=== PATIENT | female | born 1960 | race Caucasian/White ===

== ENCOUNTER 2016-10-26 08:03 | Day surgery (SDC) | payer MEDICARE, MEDICAID ==
[~2016-10-26 08:03] MED LIST: KETOROLAC TROMETHAMINE 0.45% 4 DROP/0.4 ML DROPERETTE OS PRN; MIDAZOLAM 2 MG/2 ML INJ ONE
[2016-10-26] MEDS ORDERED: CHONDR SU A NA/HYALUR INTRAOC KIT (SURGICARE) ONE (08:21)
[2016-10-26] MEDS ORDERED: LIDOCAINE 1% INJ-PF (10 MG/ML) 30 ML SDV ONE (08:21)
[2016-10-26] MEDS ORDERED: EPINEPHRINE INJ/PF 1 MG/1 ML AMPULE ONE (08:21)
[2016-10-26] MEDS: CYCLOPENTOLATE 0.2%/PHENYLEPHRINE 1% OPH SOLN 2 ML OS PRN ×3 (08:46→09:06)
[2016-10-26] MEDS: TROPICAMIDE 1% OPH SOLN 3 ML OS PRN ×3 (08:46→09:06)
[2016-10-26] MEDS: BESIFLOXACIN HCL 0.6% OPH SUSP 5 ML BOTTLE OS PRN ×3 (08:46→08:56)
[2016-10-26] MEDS: TETRACAINE HCL 0.5% OPH SOLN 2 ML OS PRN ×4 (08:47→09:24)
[2016-10-26] MEDS ORDERED: PHENYLEPHRINE/KETOROLAC 1%-0.3% 4 ML VIAL ONE (08:59)
[2016-10-26] MEDS ORDERED: DEXMEDETOMIDINE INJ 80 MCG/20 ML VIAL IV ONE (09:39)
[2016-10-26] MEDS ORDERED: POVIDONE-IODINE 5% OPH PREP SOLN 30 ML ONE (09:44)
[2016-10-26] MEDS ORDERED: MIDAZOLAM 2 MG/2 ML INJ ONE (10:01)
== END 2016-10-26 11:29 | disposition home or self-care (01) ==
LOC: SC 08:03
PROVIDERS: ATTEND Internal Medicine
DX: H25.13 Age-related nuclear cataract, bilateral (principal); Z53.9 Procedure and treatment not carried out, unspecified reason; F40.240 Claustrophobia
CPT/HCPCS: 82962; 66984; J2250; J3490 ×4; A9270; C9447; 142; J0171

== ENCOUNTER 2016-11-16 10:56 | Day surgery (SDC) | payer MEDICAID, MEDICARE ==
[~2016-11-16 10:56] MED LIST changes: +CHONDR SU A NA/HYALUR INTRAOC KIT (SURGICARE) ONE; +LIDOCAINE 1% INJ-PF (10 MG/ML) 30 ML SDV ONE; -MIDAZOLAM 2 MG/2 ML INJ ONE; +PHENYLEPHRINE/KETOROLAC 1%-0.3% 4 ML VIAL ONE
[2016-11-16] MEDS: TROPICAMIDE 1% OPH SOLN 3 ML OS PRN ×3 (11:18→11:49)
[2016-11-16] MEDS: CYCLOPENTOLATE 0.2%/PHENYLEPHRINE 1% OPH SOLN 2 ML OS PRN ×3 (11:19→11:50)
[2016-11-16] MEDS: BESIFLOXACIN HCL 0.6% OPH SUSP 5 ML BOTTLE OS PRN ×4 (11:19→12:37)
[2016-11-16] MEDS: TETRACAINE HCL 0.5% OPH SOLN 2 ML OS PRN ×2 (11:20→11:51)
[2016-11-16] MEDS ORDERED: FENTANYL CITRATE INJ/PF 100 MCG/2 ML AMPUL ONE (11:29)
[2016-11-16] MEDS ORDERED: MIDAZOLAM 2 MG/2 ML INJ ONE (11:29)
[2016-11-16] MEDS ORDERED: METOCLOPRAMIDE HCL INJ/PF 10 MG/2 ML SDV ONE (11:29)
[2016-11-16] MEDS ORDERED: LIDOCAINE 2% INJ-PF (20 MG/ML) 10 ML AMPUL ONE (11:30)
[2016-11-16] MEDS ORDERED: ONDANSETRON HCL INJ/PF 4 MG/2 ML SDV ONE (11:30)
[2016-11-16] MEDS ORDERED: GLYCOPYRROLATE INJ 0.4 MG/2 ML VIAL ONE (11:31)
[2016-11-16] MEDS ORDERED: PROPOFOL INJ 200 MG/20 ML VIAL IV ONE ×2 (11:31→13:20)
[2016-11-16] MEDS ORDERED: SUCCINYLCHOLINE CHLORIDE INJ 200 MG/10 ML VIAL ONE ×2 (11:31→13:20)
[2016-11-16] MEDS ORDERED: ROCURONIUM BROMIDE INJ 50 MG/5 ML VIAL IV ONE (11:32)
--- NOTE | 2016-11-16 12:59 | [facility] OPERATIVE REPORT E ---
[facility] Operative Report NAME: CLINTON ERICKSON AGE: 56Y DATE OF SURGERY: 11/16/2016 ROOM: PREOPERATIVE DIAGNOSIS: Cataract, left eye. POSTOPERATIVE DIAGNOSIS: Cataract, left eye. OPERATION: Cataract extraction with intraocular lens implant of the left eye. SURGEON: MALGORZATA HERCULES M.D. ANESTHESIA: General. PROCEDURE: After obtaining appropriate consent, the patient's left eye was prepped and draped in sterile fashion as well as the surgeon in a sterile manner and cataract surgery was started. First a paracentesis blade was used to make a small side-port incision. Viscoelastic was used to inflate the anterior chamber. Next a 2.4 mm incision was made with the paracentesis blade. A continuous capsulorrhexis incision was made using a cystotome and Utrata forceps. Following this hydrodissection was carried out to make the lens fully loose and mobile and it was rotated 90 degrees. Following this, a lghixl-diy-eljwyeh technique was used to phacoemulsify the lens with a CDE of 5.51. The remaining cortex was removed with irrigation/aspiration. Provisc was instilled into the capsular bag to inflate the bag. A SN60WF, 21.0 diopter lens was placed. The remaining viscoelastic material was removed with irrigation/aspiration. Following this, a 10-0 nylon suture was used to close the incision and it was found to be watertight. Vigamox was instilled in the eye and a protective shield was placed over the eye. The patient returned to the postoperative recovery in stable condition. Prior to surgery, it was decided to do general anesthesia for this patient due to first attempt a few weeks prior where the patient had significant anxiety and claustrophobia and panic attacks and we were unable to proceed with the case under topical with Versed, therefore, we decided it would be safer to reschedule and do it under anesthesia which we performed today. DICTATING PHYSICIAN: MALGORZATA HERCULES M.D. [id number] PHY#: [id number] ID: [id number] JOB#: [id number] ACCT: [id number] cc:MALGORZATA HERCULES M.D. >
--- NOTE | 2016-11-16 12:59 | [facility] DISCHARGE SUMMARY E ---
[facility] Discharge Summary NAME: CLINTON ERICKSON AGE: 56Y ADMITTED: 11/16/2016 DISCHARGED: 11/16/2016 HOSPITAL COURSE: This is a 56-year-old female who underwent cataract extraction of the left eye. DIAGNOSIS: Cataract, left eye. INDICATIONS: She underwent surgery because she was having difficulty seeing captions on the TV. DISCHARGE INSTRUCTIONS: She should be on a regular diet. No bending at her waist. No heavy lifting. She should use her Besivance, Ilevro, and Durezol at 3 p.m. and 8 p.m. and sleep with a rigid shield. I will see her for her 1 day postoperative tomorrow. DICTATING PHYSICIAN: MALGORZATA HERCULES M.D. [id number] PHY#: [id number] ID: [id number] JOB#: [id number] ACCT: [id number] cc:MALGORZATA HERCULES M.D. >
[2016-11-16] MEDS ORDERED: NALOXONE HCL INJ/PF 0.4 MG/1 ML SDV ONE (13:12)
[2016-11-16] MEDS ORDERED: TOBRAMYCIN SULFATE/DEXAMETH OPH OINTMENT 3.5 GM ONE ×2 (13:24→13:39)
[2016-11-16] MEDS ORDERED: DEXMEDETOMIDINE INJ 80 MCG/20 ML VIAL IV ONE (13:37)
--- NOTE | 2016-11-16 15:08 | [facility] OPERATIVE REPORT E ---
[facility] Operative Report NAME: CLINTON ERICKSON AGE: 56Y DATE OF SURGERY: 11/16/2016 ROOM: ADDENDUM: The tube was removed from intubation in the operating room, and the patient was in stable position. However, in the PACU the patient started to develop acute respiratory distress, and therefore it was decided to stabilize the airway and reintubate the patient. The patient was reintubated and back in stable condition in the PACU. It was decided at this time that the patient should be sent to the ER and admitted for monitoring and chest x-ray. See the anesthesia report for any further details on this. TobraDex ointment was placed in the eye, and a pressure patch was placed with a rigid shield to protect the eye. Directions were made so that the pressure patch should stay on 24 hours until I see her in the hospital tomorrow for examination and postop care. DICTATING PHYSICIAN: MALGORZATA HERCULES M.D. [id number] PHY#: [id number] ID: [id number] JOB#: [id number] ACCT: [id number] cc:MALGORZATA HERCULES M.D. >
== END 2016-11-16 13:52 | disposition other institution (70) ==
LOC: SC 10:56
PROVIDERS: ATTEND Internal Medicine
PROC: 08RK3JZ Replacement of Left Lens with Synthetic Substitute, Percutaneous Approach (ICD-10-PCS; principal; 2016-11-16 12:00)
DX: H25.12 Age-related nuclear cataract, left eye (principal); R06.00 Dyspnea, unspecified; M19.90 Unspecified osteoarthritis, unspecified site; Z79.1 Long term (current) use of non-steroidal anti-inflammatories (NSAID); E11.9 Type 2 diabetes mellitus without complications; I10 Essential (primary) hypertension; G40.909 Epilepsy, unspecified, not intractable, without status epilepticus; E66.9 Obesity, unspecified; Z88.5 Allergy status to narcotic agent; Z87.891 Personal history of nicotine dependence; Z79.84 Long term (current) use of oral hypoglycemic drugs
CPT/HCPCS: 66984; 82962; V2632; J2250; J3490 ×6; A9270; J3010; J2765; J2310; J0330; J2405; J2704; C9447; 142

== ENCOUNTER 2016-11-16 14:00 | Observation (INO) | payer MEDICARE ==
[2016-11-16] MEDS ORDERED: FENTANYL CITRATE INJ/PF 100 MCG/2 ML AMPUL ONE (14:13)
[2016-11-16] MEDS ORDERED: PROPOFOL INJ 200 MG/20 ML VIAL IV ONE (14:14)
[2016-11-16] MEDS ORDERED: FENTANYL CITRATE INJ/PF 100 MCG/2 ML AMPUL IV ONE (14:16)
[2016-11-16] MEDS ORDERED: PROPOFOL 100 ML IV ONE ×2 (14:27→15:51)
[2016-11-16 15:15] LABS: ABSOLUTE BASOPHILS # (AUTO) 0.1 10^3/uL (0.0-0.2); ABSOLUTE EOSINOPHILS # (AUTO) 0.2 10^3/uL (0.0-0.6); ABSOLUTE LYMPHOCYTES (AUTO) 1.9 10^3/uL (0.5-4.7); ABSOLUTE MONOCYTES (AUTO) 0.4 10^3/uL (0.1-1.4); ABSOLUTE NEUT (AUTO) 6.5 10^3/uL (1.7-8.2); BASOPHILS % (AUTO) 0.6 % (0-2); EOSINOPHILS % (AUTO) 2.5 % (0-6); HEMATOCRIT 38.7 % (36.0-47.0); HEMOGLOBIN 12.6 g/dL (12.0-15.5); HGB HCT DIFFERENCE -0.9; LYMPHOCYTES % (AUTO) 20.6 % (13-45); MEAN CORPUSCULAR HEMOGLOBIN 30.1 pg (27.0-33.4); MEAN CORPUSCULAR HGB CONC 32.6 g/dL (32.0-36.0); MEAN CORPUSCULAR VOLUME 92 fl (80-97); MONOCYTES % (AUTO) 4.2 % (3-13); RED BLOOD COUNT 4.19 10^6/uL (3.72-5.28); RED CELL DISTRIBUTION WIDTH 14.7 % (11.5-14.0); SEGMENTED NEUTROPHILS % (AUTO) 72.1 % (42-78)
[2016-11-16 15:30] LABS: ANION GAP 10 (5-19); BLOOD UREA NITROGEN 10 mg/dL (7-20); CALCIUM 8.9 mg/dL (8.4-10.2); CARBON DIOXIDE 26 mmol/L (22-30); CHLORIDE 105 mmol/L (98-107); CREATINE KINASE 87 U/L (30-135); CREATININE RESULT 0.58 mg/dL (0.52-1.25); GLUCOSE 143 mg/dL (75-110); POTASSIUM 4.8 mmol/L (3.6-5.0); SODIUM 140.9 mmol/L (137-145)
[2016-11-16] MEDS ORDERED: DEXAMETHASONE SOD PHOS INJ 10 MG/1 ML VIAL IV ONE (17:53)
--- NOTE | 2016-11-16 17:54 | ER Document Report ---
ED Respiratory Problem - General Chief Complaint: Respiratory Distress Stated Complaint: UNRESPONSIVE Notes: The patient is a 56-year-old female who presents from the outpatient ophthalmology surgical center after she became hypoxic and in respiratory distress. She had cataract surgery under general anesthesia earlier today because of anxiety. She was extubated and doing fine, but then her oxygenation went down to 40% and she became acutely worse. She was re-intubated and sent to the emergency room for further evaluation and treatment. TRAVEL OUTSIDE OF THE [place] IN LAST 30 DAYS: No - Related Data Allergies/Adverse Reactions: morphine [Morphine] Allergy (Intermediate, Verified 10/26/16 09:03) Nausea Past Medical History - General Information source: Emergency Med Personnel - Social History Smoking Status: Never Smoker Family History: Reviewed & Not Pertinent - Past Medical History Cardiac Medical History: Reports: Hx Coronary Artery Disease, Hx Hypercholesterolemia, Hx Hypertension Denies: Hx DVT, Hx Heart Attack Pulmonary Medical History: Reports: Hx Asthma Denies: Hx Tuberculosis Neurological Medical History: Reports: Hx Seizures - LAST Aug. Denies: Hx Cerebrovascular Accident Endocrine Medical History: Reports: Hx Diabetes Mellitus Type 2. Denies: Hx Diabetes Mellitus Type 1 Renal/ Medical History: Denies: Hx Peritoneal Dialysis GI Medical History: Reports: Hx Gastroesophageal Reflux Disease. Denies: Hx Gastritis, Hx Hepatitis, Hx Hiatal Hernia, Hx Irritable Bowel, Hx Liver Failure , Hx Ulcer Musculoskeltal Medical History: Reports Hx Arthritis, Denies Hx Multiple Sclerosis Psychiatric Medical History: Reports: Hx Depression - Anxiety Denies: Hx Bipolar Disorder, Hx Dementia, Hx Post Traumatic Stress Disorder, Hx Schizophrenia Infectious Medical History: Denies: Hx Hepatitis Past Surgical History: Reports: Hx Cholecystectomy. Denies: Hx Appendectomy, Hx Bowel Surgery, Hx Section, Hx Colostomy, Hx Coronary Artery Bypass Graft, Hx Gastric Bypass Surgery, Hx Herniorrhaphy, Hx Hysterectomy, Hx Mastectomy, Hx Open Heart Surgery, Hx Pacemaker, Hx Tonsillectomy, Hx Tubal Ligation - Immunizations Hx Diphtheria, Pertussis, Tetanus Vaccination: No Hx Pneumococcal Vaccination: 10/01/06 Review of Systems - Review of Systems -: Yes ROS unobtainable due to patient's medical condition Physical Exam - Vital signs Vitals: Pulse Ox 99 11/16/16 14:10 - Notes Notes: PHYSICAL EXAMINATION: GENERAL: Intubated. No acute distress. HEAD: Atraumatic, normocephalic. EYES: Pupils equal round and reactive to light, extraocular movements intact, sclera anicteric, conjunctiva are normal. ENT: nares patent, oropharynx clear without exudates. Moist mucous membranes. NECK: Normal range of motion, supple without lymphadenopathy LUNGS: Breath sounds clear to auscultation bilaterally and equal. No wheezes rales or rhonchi. HEART: Regular rate and rhythm without murmurs ABDOMEN: Soft, nontender, normoactive bowel sounds. No guarding, no rebound. No masses appreciated. EXTREMITIES: Normal range of motion, no pitting or edema. No cyanosis. NEUROLOGICAL: RASS -4 SKIN: Warm, Dry, normal turgor, no rashes or lesions noted. Course - Re-evaluation Re-evalutation: With an acute hypoxic episode after surgery, CTA obtained to assess for PE. No PE present. Called anesthesia to help extubate patient. Extubated patient and placed on a Ventimask. Due to respiratory distress several hours after she was extubated, will admit patient for further monitoring. Spoke to Dr. Moody and she has accepted patient under her service. - Vital Signs Vital signs: Temp Pulse Resp BP Pulse Ox 96 22 H 173/99 H 95 11/16/16 18:28 11/16/16 18:28 11/16/16 18:28 11/16/16 18:28 - Laboratory Result Diagrams: 11/16/16 14:16 11/16/16 14:16 Laboratory results interpreted by me: 11/16/16 11/16/16 14:16 14:16 RDW 14.7 H Glucose 143 H Critical Care Note - Critical Care Note Total time excluding time spent on procedures (mins): 45 Discharge - Discharge Clinical Impression: Hypoxia, Respiratory abnormality Condition: Stable Disposition: ADMITTED OBSERVATION Admitting Provider: Jenniferist Marcella Moody Unit Admitted: [facility]
--- NOTE | 2016-11-16 19:09 | PDOC H&P ---
History of Present Illness Admission Date/PCP: 11/16/16 18:49 ELICEO HERZOG MD Patient complains of: SOB History of Present Illness: CLINTON ERICKSON is a 56 year old female Underwent cataract surgery today at the surgery Center Patient was initially extubated and had to be reintubated as she was in respiratory distress She was finally extubated again and was admitted overnight for observation Upon admission patient denies chest pain shortness of breath fever chills abdominal pain Past Medical History Cardiac Medical History: Reports: Coronary Artery Disease, Hyperlipidema, Hypertension Denies: DVT, Myocardial Infarction Pulmonary Medical History: Reports: Asthma Denies: Tuberculosis Neurological Medical History: Reports: Seizures - LAST Aug Endocrine Medical History: Reports: Diabetes Mellitus Type 2 Denies: Diabetes Mellitus Type 1 GI Medical History: Reports: Gastroesophageal Reflux Disease Denies: Hepatitis, Hiatal Hernia Musculoskeltal Medical History: Reports: Arthritis Psychiatric Medical History: Reports: Depression - Anxiety Denies: Bipolar Disorder, Dementia, Post Traumatic Stress Disorder Hematology: Denies: Anemia, Sickle Cell Disease Past Surgical History Past Surgical History: Reports: Cholecystectomy Denies: Amputation, Appendectomy, Section, Colostomy, Coronary Artery Bypass Graft, Gastric Bypass Surgery, Herniorrhaphy, Hysterectomy, Mastectomy, Pacemaker, Tonsillectomy, Tubal Ligation Social History Smoking Status: Never Smoker Frequency of Alcohol Use: None Hx Recreational Drug Use: No Hx Prescription Drug Abuse: No - Advance Directive Resuscitation Status: Full Code Family History Family History: Reviewed & Not Pertinent Parental Family History Reviewed: Yes Children Family History Reviewed: Yes Sibling(s) Family History Reviewed.: Yes Medication/Allergy Home Medications: Atenolol [Tenormin 50 mg Tablet] 50 mg PO DAILY 02/23/15 Estradiol/Norethindrone Acet [Mimvey Lo 0.5-0.1 mg Tablet] 1 tab PO DAILY Levetiracetam [Keppra 500 mg Tablet] 500 mg PO QAM 02/23/15 Oxycodone HCl/Acetaminophen [Percocet 5-325 mg Tablet] 1 tab PO Q4 02/23/15 Buspirone HCl 15 mg PO BID 10/20/16 Clonidine HCl 0.1 mg PO QHS 10/20/16 Gabapentin 300 mg PO QHS 10/20/16 Ketorolac Tromethamine 0.45% [Acuvail 0.45% Oph Soln 0.4 ml/Dropperette] 1 drop OD ASDIR 10/20/16 Levetiracetam [Keppra 500 mg Tablet] 1,000 mg PO QHS 10/20/16 Metformin HCl 500 mg PO QAM 10/20/16 Metformin HCl [Glucophage] 1,000 mg PO QHS 10/20/16 Moxifloxacin HCl [Vigamox 0.5% Oph Soln 3 ml] 1 drop OP ASDIR 10/20/16 Naproxen [Naprosyn 250 mg Tablet] 250 mg PO DAILY PRN 10/20/16 Paroxetine HCl [Paxil] 40 mg PO ASDIR 10/20/16 Pnv with Ca,No.72/Iron/FA [Preplus Ca-Fe 27 mg-FA 1 mg Tb] 1 each PO DAILY 10/20 Prednisolone Acetate [Pred Forte] 1 ml OP ASDIR 10/20/16 Promethazine HCl 25 mg PO ASDIR 10/20/16 Simvastatin 20 mg PO DAILY 10/20/16 Solifenacin Succinate [Vesicare] 10 mg PO ASDIR 10/20/16 Zolpidem Tartrate 15 mg PO ASDIR PRN 10/20/16 Besifloxacin HCl [Besivance 0.6% Oph Susp 5 ml] 1 drop OP ASDIR 10/26/16 Difluprednate [Durezol] 1 drop OP ASDIR 10/26/16 Nepafenac [Ilevro] 1 drop OP ASDIR 10/26/16 Allergies/Adverse Reactions: morphine [Morphine] Allergy (Intermediate, Verified 10/26/16 09:03) Nausea Review of Systems Constitutional: ABSENT: chills, fever(s), headache(s), weight gain, weight loss Eyes: ABSENT: visual disturbances Ears: ABSENT: hearing changes Cardiovascular: ABSENT: chest pain, dyspnea on exertion, edema, orthropnea, palpitations Respiratory: ABSENT: cough, hemoptysis Gastrointestinal: ABSENT: abdominal pain, constipation, diarrhea, hematemesis, hematochezia, nausea, vomiting Genitourinary: ABSENT: dysuria, hematuria Musculoskeletal: ABSENT: joint swelling Integumentary: ABSENT: rash, wounds Neurological: ABSENT: abnormal gait, abnormal speech, confusion, dizziness, focal weakness, syncope Psychiatric: ABSENT: anxiety, depression, homidical ideation, suicidal ideation Endocrine: ABSENT: cold intolerance, heat intolerance, polydipsia, polyuria Hematologic/Lymphatic: ABSENT: easy bleeding, easy bruising Physical Exam Vital Signs: Temp Pulse Resp BP Pulse Ox 96 22 H 173/99 H 95 11/16/16 18:28 11/16/16 18:28 11/16/16 18:28 11/16/16 18:28 General appearance: PRESENT: no acute distress, cooperative, obese Head exam: PRESENT: atraumatic, normocephalic Eye exam: PRESENT: other - left eye is patched Respiratory exam: PRESENT: clear to auscultation sam. ABSENT: rales, rhonchi, wheezes Cardiovascular exam: PRESENT: RRR. ABSENT: diastolic murmur, rubs, systolic murmur Pulses: PRESENT: normal dorsalis pedis pul GI/Abdominal exam: PRESENT: normal bowel sounds, soft. ABSENT: distended, guarding, mass, organolmegaly, rebound, tenderness Extremities exam: PRESENT: full ROM. ABSENT: calf tenderness, clubbing, pedal edema Neurological exam: PRESENT: alert, awake, oriented to person, oriented to place , oriented to time, oriented to situation, CN II-XII grossly intact. ABSENT: motor sensory deficit Results Impressions: Chest X-Ray 11/16/16 14:11 IMPRESSION: Endotracheal tube with its tip at the level of the thoracic inlet. Allowing for the shallow inspiration no acute consolidations or pleural effusions are identified. Other findings as noted above Chest/Abdomen CTA 11/16/16 14:11 IMPRESSION: No evidence for pulmonary embolic disease. Airspace consolidation is identified in the dependent portions of both lungs most consistent with atelectatic changes. Other findings as noted above Assessment & Plan - Diagnosis (1) Respiratory failure Is this a current diagnosis for this admission?: Yes (2) Obesity (BMI 30.0-34.9) Is this a current diagnosis for this admission?: Yes (3) ROBERTA (obstructive sleep apnea) Is this a current diagnosis for this admission?: Yes - Time Time Spent with patient: will keep patient overnite nebs incentive spirometry will discharge patient in am if stable Time Spent: 50 to 70 Minutes - Inpatient Certification Based on my medical assessment, after consideration of the patient's comorbidities, presenting symptoms, or acuity I expect that the services needed warrant INPATIENT care.: No I certify that my determination is in accordance with my understanding of Medicare's requirements for reasonable and necessary INPATIENT services [42 CFR 412.3e].: No
[2016-11-16] MEDS: IPRATROPIUM/ALBUTEROL 0.5-2.5 MG/3 ML AMPUL NEB SCH (21:06)
[2016-11-17] MEDS: IPRATROPIUM/ALBUTEROL 0.5-2.5 MG/3 ML AMPUL NEB SCH (08:37)
[2016-11-17 09:53] VITALS: BP 140/69
--- NOTE | 2016-11-17 12:36 | EKG REPORT ---
SEVERITY:- BORDERLINE ECG - SINUS RHYTHM BORDERLINE T ABNORMALITIES, ANTERIOR LEADS BORDERLINE PROLONGED QT INTERVAL : Confirmed by: Leopoldo Schaeffer 17-Nov-2016 12:35:08
--- NOTE | 2016-11-17 13:09 | PDOC DISCHARGE SUMMARY ---
General - Admit/Disc Date/PCP Admission Date/Primary Care Provider: 11/16/16 18:54 ELICEO HERZOG MD Discharge Date: 11/17/16 - Discharge Diagnosis (1) Respiratory failure Is this a current diagnosis for this admission?: Yes (2) Obesity (BMI 30.0-34.9) Is this a current diagnosis for this admission?: Yes (3) ROBERTA (obstructive sleep apnea) Is this a current diagnosis for this admission?: Yes - Additional Information Resuscitation Status: Full Code Discharge Diet: As Tolerated Discharge Activity: Activity As Tolerated Home Medications: Atenolol [Tenormin 50 mg Tablet] 50 mg PO DAILY 02/23/15 Estradiol/Norethindrone Acet [Mimvey Lo 0.5-0.1 mg Tablet] 1 tab PO DAILY Levetiracetam [Keppra 500 mg Tablet] 500 mg PO QAM 02/23/15 Buspirone HCl 15 mg PO BID 10/20/16 Gabapentin 300 mg PO QHS 10/20/16 Ketorolac Tromethamine 0.45% [Acuvail 0.45% Oph Soln 0.4 ml/Dropperette] 1 drop OD ASDIR 10/20/16 Levetiracetam [Keppra 500 mg Tablet] 1,000 mg PO QHS 10/20/16 Metformin HCl 500 mg PO QAM 10/20/16 Metformin HCl [Glucophage] 1,000 mg PO QHS 10/20/16 Moxifloxacin HCl [Vigamox 0.5% Oph Soln 3 ml] 1 drop OP ASDIR 10/20/16 Paroxetine HCl [Paxil] 20 mg PO QHS 10/20/16 Pnv with Ca,No.72/Iron/FA [Preplus Ca-Fe 27 mg-FA 1 mg Tb] 1 each PO DAILY 10/20 Prednisolone Acetate [Pred Forte] 1 ml OP ASDIR 10/20/16 Promethazine HCl 25 mg PO ASDIR 10/20/16 Simvastatin 20 mg PO DAILY 10/20/16 Zolpidem Tartrate 15 mg PO ASDIR PRN 10/20/16 Besifloxacin HCl [Besivance 0.6% Oph Susp 5 ml] 1 drop OP ASDIR 10/26/16 Difluprednate [Durezol] 1 drop OP ASDIR 10/26/16 Nepafenac [Ilevro] 1 drop OP ASDIR 10/26/16 Clonazepam [Klonopin] 0.5 mg PO BID 11/17/16 Hydrocodone/Acetaminophen [Hydrocodon-Acetaminoph 7.5-325] 1 tab PO Q8HP PRN Naproxen 500 mg PO BIDP PRN 11/17/16 History of Present Illness Patient complains of: shortness ob breath History of Present Illness: CLINTON ERICKSON is a 56 year old female Underwent cataract surgery today at the surgery Center Patient was initially extubated and had to be reintubated as she was in respiratory distress She was finally extubated again and was admitted overnight for observation Upon admission patient denies chest pain shortness of breath fever chills abdominal pain Hospital Course Hospital Course: Patient was admitted overnite to Telemetry Unit She was kept on nasal O2 , and had received decadron 10 mg IVP in the ER She was monitered She used the Incentive Spirometer and had intermittent nebs She remained asymptomatic and was discharged the next morning totally asymptomatic except for a persistent sore throat Physical Exam Vital Signs: Temp Pulse Resp BP Pulse Ox 98.1 F 108 H 18 140/69 H 98 11/17/16 09:46 11/17/16 09:46 11/17/16 09:46 11/17/16 09:46 11/17/16 09:46 Intake & Output 11/16/16 11/17/16 11/18/16 00:59 00:59 00:59 Intake Total 250 Balance 250 Weight 111.3 kg General appearance: PRESENT: no acute distress, well-developed, well-nourished Head exam: PRESENT: atraumatic, normocephalic Eye exam: PRESENT: conjunctiva pink, EOMI, PERRLA. ABSENT: scleral icterus Ear exam: PRESENT: normal external ear exam Mouth exam: PRESENT: moist, tongue midline Neck exam: ABSENT: carotid bruit, JVD, lymphadenopathy, thyromegaly Respiratory exam: PRESENT: clear to auscultation sam. ABSENT: rales, rhonchi, wheezes Cardiovascular exam: PRESENT: RRR. ABSENT: diastolic murmur, rubs, systolic murmur Pulses: PRESENT: normal dorsalis pedis pul Vascular exam: PRESENT: normal capillary refill GI/Abdominal exam: PRESENT: normal bowel sounds, soft. ABSENT: distended, guarding, mass, organolmegaly, rebound, tenderness Rectal exam: PRESENT: deferred Extremities exam: PRESENT: full ROM. ABSENT: calf tenderness, clubbing, pedal edema Neurological exam: PRESENT: alert, awake, oriented to person, oriented to place , oriented to time, oriented to situation, CN II-XII grossly intact. ABSENT: motor sensory deficit Psychiatric exam: PRESENT: appropriate affect, normal mood. ABSENT: homicidal ideation, suicidal ideation Skin exam: PRESENT: dry, intact, warm. ABSENT: cyanosis, rash Results Laboratory Results: Abnormal - 24 hr 11/16/16 11/16/16 14:16 14:16 RDW 14.7 H Glucose 143 H 11/16/16 11/16/16 14:16 14:16 RDW 14.7 H Glucose 143 H Labs- All tests 24 hr 11/16/16 11/16/16 11/16/16 14:16 14:16 14:16 WBC 9.0 RBC 4.19 Hgb 12.6 Hct 38.7 MCV 92 MCH 30.1 MCHC 32.6 RDW 14.7 H Plt Count 241 Seg Neutrophils % 72.1 Lymphocytes % 20.6 Monocytes % 4.2 Eosinophils % 2.5 Basophils % 0.6 Absolute Neutrophils 6.5 Absolute Lymphocytes 1.9 Absolute Monocytes 0.4 Absolute Eosinophils 0.2 Absolute Basophils 0.1 Sodium 140.9 Potassium 4.8 Chloride 105 Carbon Dioxide 26 Anion Gap 10 BUN 10 Creatinine 0.58 Est GFR ( Amer) > 60 Est GFR (Non-Af Amer) > 60 Glucose 143 H Calcium 8.9 Creatine Kinase 87 Troponin I NT-Pro-B Natriuret Pep 117 11/16/16 14:16 WBC RBC Hgb Hct MCV MCH MCHC RDW Plt Count Seg Neutrophils % Lymphocytes % Monocytes % Eosinophils % Basophils % Absolute Neutrophils Absolute Lymphocytes Absolute Monocytes Absolute Eosinophils Absolute Basophils Sodium Potassium Chloride Carbon Dioxide Anion Gap BUN Creatinine Est GFR ( Amer) Est GFR (Non-Af Amer) Glucose Calcium Creatine Kinase Troponin I < 0.012 NT-Pro-B Natriuret Pep Impressions: Chest X-Ray 11/16/16 14:11 IMPRESSION: Endotracheal tube with its tip at the level of the thoracic inlet. Allowing for the shallow inspiration no acute consolidations or pleural effusions are identified. Other findings as noted above Chest/Abdomen CTA 11/16/16 14:11 IMPRESSION: No evidence for pulmonary embolic disease. Airspace consolidation is identified in the dependent portions of both lungs most consistent with atelectatic changes. Other findings as noted above Plan Discharge Plan: patient was discharged home to follow up with Dr Yip the same day Time Spent: Less than 30 Minutes
== END 2016-11-17 10:07 | disposition home or self-care (01) ==
LOC: ER 14:00 → EH 18:49 → UNDOADMOB 18:49 → EH 18:54 → 3S 21:51
PROVIDERS: ADMIT Emergency Medicine; ATTEND Emergency Medicine
PROC: 3E033GC Introduction of Other Therapeutic Substance into Peripheral Vein, Percutaneous Approach (ICD-10-PCS; principal; 2016-11-16)
PROC: 3E033GC Introduction of Other Therapeutic Substance into Peripheral Vein, Percutaneous Approach (ICD-10-PCS; 2016-11-16)
DX: J95.821 Acute postprocedural respiratory failure (principal); G47.33 Obstructive sleep apnea (adult) (pediatric); E66.9 Obesity, unspecified; I25.10 Atherosclerotic heart disease of native coronary artery without angina pectoris; I10 Essential (primary) hypertension; E78.5 Hyperlipidemia, unspecified; J45.909 Unspecified asthma, uncomplicated; E11.9 Type 2 diabetes mellitus without complications; K21.9 Gastro-esophageal reflux disease without esophagitis; Z79.84 Long term (current) use of oral hypoglycemic drugs; Z68.42 Body mass index [BMI] 45.0-49.9, adult; Z98.49 Cataract extraction status, unspecified eye
CPT/HCPCS: 94640 ×3; 99291; 96374; 96375; 36415; 82550; 85025; 80048; 84484; 83880; 71010; 71275; 93005; 93010; 94002; G0378 ×2; J3010; J2704; J1100; A9270 ×2; J7620

== ENCOUNTER 2018-06-17 09:46 | Emergency (ER) | payer MEDICARE, MEDICAID ==
[2018-06-17 10:08] VITALS: BP 151/87
[2018-06-17] MEDS ORDERED: LIDOCAINE 1% INJ-PF (10 MG/ML) 30 ML SDV INJ ONE (10:35)
[2018-06-17] MEDS ORDERED: CEFTRIAXONE INJ 1000 MG VIAL IM ONE (10:35)
[2018-06-17] MEDS ORDERED: OXYCODONE-ACETAMINOPHEN 5-325 MG TABLET PO ONE (10:35)
--- NOTE | 2018-06-17 10:41 | ER Document Report ---
ED General - General Chief Complaint: Breast Problem Stated Complaint: POST OP ISSUES Time Seen by Provider: 06/17/18 10:27 Notes: Chief complaint: Postsurgical pain History of complain:( obtained from----patient) 58 years old female 2 weeks ago had bilateral mastectomy, presents today with erythema around the brandon and the drain on the right side as well as on the left side. No fever chills or other constitutional symptoms. Running out of her pain medication and having more pain. Denies any nausea vomiting fever chills or other constitutional symptoms Onset: Last 2 weeks gradual Duration: 2 weeks Severity: Moderate Quality: Sharp Context: Postsurgical pain Exacerbating factor and relieving factors: Movement REVIEW OF SYSTEMS: CONSTITUTIONAL : Denies fever, chills, EENT: Denies eye, ear, throat, or mouth pain or symptoms. Denies nasal or sinus congestion or discharge. Denies throat, tongue, or mouth swelling or difficulty swallowing. CARDIOVASCULAR: Denies chest pain. Denies palpitations or racing or irregular heart beat. Denies ankle edema. RESPIRATORY: Denies cough, cold, or chest congestion. Denies shortness of breath, difficulty breathing, or wheezing. GASTROINTESTINAL: Denies distention. Denies nausea, vomiting, or diarrhea. Denies blood in vomitus, stools, or per rectum. Denies black, tarry stools. Denies constipation. GENITOURINARY: Denies difficulty urinating, painful urination, burning, frequency, blood in urine, or discharge. FEMALE GENITOURINARY: Denies vaginal bleeding, heavy or abnormal periods, irregular periods. Denies vaginal discharge or odor. MUSCULOSKELETAL: Denies back or neck pain or stiffness. Denies joint pain or swelling. SKIN: Denies rash, lesions or sores. HEMATOLOGIC : Denies easy bruising or bleeding. LYMPHATIC: Denies swollen, enlarged glands. NEUROLOGICAL: Denies confusion or altered mental status. Denies passing out or loss of consciousness. Denies dizziness or lightheadedness. Denies headache. Denies weakness or paralysis or loss of use of either side. Denies problems with gait or speech. Denies sensory loss, numbness, or tingling. Denies seizures. PSYCHIATRIC: Denies anxiety or stress. Denies depression, suicidal ideation, or homicidal ideation. ALL OTHER SYSTEMS REVIEWED AND NEGATIVE. PHYSICAL EXAMINATION: GENERAL: Well-appearing, well-nourished and obesity, mild to moderate discomfort HEAD: Atraumatic, normocephalic. EYES: Pupils equal round and reactive to light, extraocular movements intact, conjunctiva are normal. ENT: Nares patent, oropharynx clear without exudates. Moist mucous membranes. NECK: Normal range of motion, supple without lymphadenopathy LUNGS: Breath sounds clear to auscultation bilaterally and equal. No wheezes rales or rhonchi. HEART: Regular rate and rhythm without murmurs ABDOMEN: Soft, nontender, nondistended abdomen. No guarding, no rebound. No masses appreciated. Examination of genitals-deferred Musculoskeletal: Normal range of motion, no pitting or edema. No cyanosis. NEUROLOGICAL: Cranial nerves grossly intact. Normal speech, normal gait. Normal sensory, motor exams PSYCH: Normal mood, normal affect. SKIN: Examination of the skin over the bilateral breast region shows complete removal of the breast, brandon intact but on the left side there were mild erythema around the brandon noted. On the right side brandon appears normal but the drain is draining but erythema around the drainage tube was noted. No purulent discharges. Dictation was performed using [employer]ac[employer] voice recognition software TRAVEL OUTSIDE OF THE [place] IN LAST 30 DAYS: No - HPI Notes: Dictated - Related Data Allergies/Adverse Reactions: morphine [Morphine] Allergy (Intermediate, Verified 06/17/18 10:01) Nausea Past Medical History - Social History Smoking Status: Never Smoker Smoking Education Provided: No Frequency of alcohol use: Rare Lives with: Family Family History: Reviewed & Not Pertinent - Past Medical History Cardiac Medical History: Reports: Hx Coronary Artery Disease, Hx Hypercholesterolemia, Hx Hypertension Denies: Hx DVT, Hx Heart Attack Pulmonary Medical History: Reports: Hx Asthma Denies: Hx Tuberculosis Neurological Medical History: Reports: Hx Seizures - LAST Aug. Denies: Hx Cerebrovascular Accident Endocrine Medical History: Reports: Hx Diabetes Mellitus Type 2. Denies: Hx Diabetes Mellitus Type 1 Renal/ Medical History: Denies: Hx Peritoneal Dialysis GI Medical History: Reports: Hx Gastroesophageal Reflux Disease. Denies: Hx Gastritis, Hx Hepatitis, Hx Hiatal Hernia, Hx Irritable Bowel, Hx Liver Failure , Hx Pancreatitis, Hx Ulcer Musculoskeletal Medical History: Reports Hx Arthritis, Denies Hx Multiple Sclerosis Psychiatric Medical History: Reports: Hx Depression - Anxiety Denies: Hx Bipolar Disorder, Hx Dementia, Hx Post Traumatic Stress Disorder, Hx Schizophrenia Infectious Medical History: Denies: Hx Hepatitis Past Surgical History: Reports: Hx Cholecystectomy. Denies: Hx Appendectomy, Hx Bowel Surgery, Hx Section, Hx Colostomy, Hx Coronary Artery Bypass Graft, Hx Gastric Bypass Surgery, Hx Herniorrhaphy, Hx Hysterectomy, Hx Mastectomy, Hx Open Heart Surgery, Hx Pacemaker, Hx Tonsillectomy, Hx Tubal Ligation - Immunizations Hx Diphtheria, Pertussis, Tetanus Vaccination: No Hx Pneumococcal Vaccination: 10/01/06 Review of Systems - Review of Systems Notes: Dictated Physical Exam - Vital signs Vitals: Temp Pulse Resp BP Pulse Ox 98.1 F 86 20 151/87 H 98 06/17/18 10:04 06/17/18 10:04 06/17/18 10:04 06/17/18 10:04 06/17/18 10:04 - Notes Notes: Dictated Course - Vital Signs Vital signs: Temp Pulse Resp BP Pulse Ox 98.1 F 86 20 151/87 H 98 06/17/18 10:04 06/17/18 10:04 06/17/18 10:04 06/17/18 10:04 06/17/18 10:04 Discharge - Discharge Clinical Impression: Status post bilateral mastectomy Wound infection after surgery Qualifiers: Encounter type: initial encounter Qualified Code(s): T81.4XXA - Infection following a procedure, initial encounter Condition: Fair Disposition: HOME, SELF-CARE Instructions: Wound Infection ([facility]) Prescriptions: Cephalexin Monohydrate [Keflex 500 mg Capsule] 500 mg PO Q6H 10 Days capsule Oxycodone HCl/Acetaminophen [Percocet 5-325 mg Tablet] 1 - 2 tab PO Q4H PRN #15 tablet PRN Reason: Referrals: ELICEO HERZOG MD [Primary Care Provider] - Follow up as needed
== END 2018-06-17 17:11 | disposition home or self-care (01) ==
LOC: ER 09:46
DX: T81.4XXA Infection following a procedure, initial encounter (principal); Z90.13 Acquired absence of bilateral breasts and nipples
CPT/HCPCS: 99283; 96372; J3490; A9270; J0696